=== PATIENT | female | born 2005 | race Caucasian/White ===

== ENCOUNTER 2025-06-04 22:17 | Emergency (ER) | payer SELFPAY ==
[~2025-06-04] VITALS: Ht 165.1 cm; Wt 75.0 kg
[2025-06-04 22:22] VITALS: TEMP 98
[2025-06-04] MEDS ORDERED: DIPH50CA39 PO (22:54)
[2025-06-04] MEDS ORDERED: BACI28.410 TP (22:54)
[2025-06-04 23:01] VITALS: BP 121/64; PULSE 88; RESP 16; O2SAT 100
[2025-06-04] MEDS: BACITRACIN 0.9 GM PACKET OINTMENT TP ONE (23:18)
== END 2025-06-04 23:25 | disposition home or self-care (01) ==
LOC: EMS 22:23
DX: S90.562A Insect bite (nonvenomous), left ankle, initial encounter (principal); L30.9 Dermatitis, unspecified; W57.XXXA Bitten or stung by nonvenomous insect and other nonvenomous arthropods, initial encounter; Y93.89 Activity, other specified; Y92.89 Other specified places as the place of occurrence of the external cause; Y99.8 Other external cause status
CPT/HCPCS: 99283